=== PATIENT | male | born 1945 | race Caucasian/White ===

== ENCOUNTER → 2016-11-17 | Outpatient (CLI) | payer MEDICARE | END | disposition home or self-care (01) | LOC: CFH 08:50 | PROVIDERS: ATTEND Internal Medicine Critical Care Medicine | DX: J98.6 Disorders of diaphragm (principal); D86.0 Sarcoidosis of lung | CPT/HCPCS: 76000 ==

== ENCOUNTER → 2016-11-22 | Outpatient (CLI) | payer MEDICARE | END | disposition home or self-care (01) | LOC: CFH 14:41 | PROVIDERS: ATTEND Internal Medicine Critical Care Medicine | DX: D86.0 Sarcoidosis of lung (principal); R91.8 Other nonspecific abnormal finding of lung field; R59.0 Localized enlarged lymph nodes | CPT/HCPCS: 71250 ==

== ENCOUNTER → 2017-03-01 | Outpatient (CLI) | payer MEDICARE ==
[~2017-03-01] MED LIST: CHOL200074 PO; FINA5TAB4 PO; MESA1.2T PO; OMEG-172 PO; OMEP-110 PO; RANI300T3 PO; SIMV20TA3 PO
== END ==
LOC: STAR 09:10
PROVIDERS: ATTEND Internal Medicine Critical Care Medicine
DX: Z01.818 Encounter for other preprocedural examination (principal); R91.8 Other nonspecific abnormal finding of lung field
CPT/HCPCS: 93005

== ENCOUNTER 2017-03-09 08:42 | Day surgery (SDC) | payer MEDICARE ==
[2017-03-01 09:48] VITALS: BP 165/85
[~2017-03-09] VITALS: Ht 186.7 cm; Wt 116.3 kg
[2017-03-09] MEDS ORDERED: LACTATED RINGERS 1,000 ML IV SCH (09:03)
[2017-03-09] MEDS ORDERED: FENTANYL PF 250 MCG/5ML ONE (09:31)
[2017-03-09] MEDS ORDERED: NEOSTIGMINE 1 MG/ML, 10ML ONE (09:59)
[2017-03-09] MEDS ORDERED: GLYCOPYRROLATE 0.2MG/1ML, 5ML ONE (09:59)
[2017-03-09] MEDS ORDERED: ROCURONIUM 10 MG/ML,10ML ONE (10:15)
[2017-03-09] MEDS ORDERED: SUCCINYLCHOLINE 20 MG/ML, 10ML ONE (10:15)
[2017-03-09] MEDS ORDERED: PROPOFOL 10 MG/ML, 20ML ONE (10:15)
[2017-03-09] MEDS ORDERED: METOCLOPRAMIDE 5 MG/ML, 2ML ONE (10:16)
[2017-03-09] MEDS ORDERED: ONDANSETRON 2MG/ML, 2ML ONE (10:16)
== END 2017-03-09 12:40 ==
LOC: OUT 08:42
PROVIDERS: ATTEND Internal Medicine Critical Care Medicine
DX: J98.4 Other disorders of lung (principal); R59.1 Generalized enlarged lymph nodes; N40.0 Benign prostatic hyperplasia without lower urinary tract symptoms; Z88.1 Allergy status to other antibiotic agents; Z88.5 Allergy status to narcotic agent; Z88.8 Allergy status to other drugs, medicaments and biological substances
CPT/HCPCS: 31625; 31652; 88172; 88173; 88305; J0330; J2405; J2704; J2710; J2765; J3010; J7120; J3490

== ENCOUNTER → 2017-07-05 | Outpatient (CLI) | payer MEDICARE | END | disposition home or self-care (01) | LOC: CFH 09:23 | PROVIDERS: ATTEND Nurse Practitioner Family | DX: R91.8 Other nonspecific abnormal finding of lung field (principal); R59.1 Generalized enlarged lymph nodes; D86.9 Sarcoidosis, unspecified | CPT/HCPCS: 71250 ==

== ENCOUNTER → 2018-05-19 | Outpatient (CLI) | payer MEDICARE | END | disposition home or self-care (01) | LOC: CFH 08:18 | PROVIDERS: ATTEND Nurse Practitioner Family | DX: R91.8 Other nonspecific abnormal finding of lung field (principal); I35.8 Other nonrheumatic aortic valve disorders; R59.1 Generalized enlarged lymph nodes; D86.0 Sarcoidosis of lung; G47.30 Sleep apnea, unspecified; E78.5 Hyperlipidemia, unspecified | CPT/HCPCS: 71250; 93306 ==